=== PATIENT | male | born 1960 | race Caucasian/White ===

== ENCOUNTER → 2016-08-29 | Outpatient (CLI) | payer OTHER ==
--- NOTE | 2016-08-29 09:04 | MR ---
EXAMINATION TYPE: MR shoulder RT wo con DATE OF EXAM: 08/29/2016 COMPARISON: NONE HISTORY: Right shoulder pain TECHNIQUE: Multiplanar, multisequence imaging of the right shoulder is performed without contrast. FINDINGS: Rotator Cuff: There is thickening of the distal margin of the supraspinatus tendon compatible tendino sis. There is a through thickness tear measuring 1 x 1.1 cm supraspinatus tendon. There is partial t endinous retraction measuring approximately 1.2 cm. There is thickening and abnormal signal involving the distal margin of the infraspinatus tendon wenceslao tible with tendinosis. Partial intrasubstance tear suspected. There is a tear of the insertion of the subscapularis tendon. Acromioclavicular Joint: There is narrowing and hypertrophic change of the AC joint with mass effect upon the rotator cuff compatible with impingement. Small amount of fluid within the AC joint likely p ost arthritic. Reactive marrow changes are noted. Glenohumeral Joint: Joint spaces preserved. Inferior glenohumeral ligament intact. Labrum: The labrum appears grossly intact given limitation of non-arthrogram study. Biceps Tendon: There are minimal fibers within the bicipital groove and the biceps tendon is not well visualized within the intracapsular portion or rotator cuff interval. Findings are suspicious for a tear of the biceps tendon.. Bone marrow signal: Reactive marrow changes involving the acromioclavicular joint. No marrow edema or contusion. Other: There is an os acromiale. Atrophy of the subscapularis and deltoid muscles noted. IMPRESSION: 1. There is complete tear of the insertion of the subscapularis tendon. 2. There is complete through thickness tear supraspinatus tendon with partial retraction of approxima tely 1.2 cm. 3. Tendinosis and partial tear of the insertion infraspinatus tendon. 4. There is an os acromiale. 5. Poor visualization of the biceps tendon within the intracapsular portion and along the biceps anch or. Findings are felt to be compatible with biceps tendon tear.
== END | disposition home or self-care (01) ==
LOC: RADMRIMAIN 07:48
PROVIDERS: ATTEND Orthopaedic Surgery
DX: S46.811A Strain of other muscles, fascia and tendons at shoulder and upper arm level, right arm, initial encounter (principal)